=== PATIENT | male | born 1965 | race Caucasian/White ===

== ENCOUNTER → 2017-09-28 | Outpatient (CLI) | payer OTHER | END | disposition home or self-care (01) | LOC: KCIC MRI 14:45 | DX: M51.27 Other intervertebral disc displacement, lumbosacral region (principal); M48.07 Spinal stenosis, lumbosacral region; M12.88 Other specific arthropathies, not elsewhere classified, other specified site; M25.78 Osteophyte, vertebrae; M51.44 Schmorl's nodes, thoracic region | CPT/HCPCS: 72146; 72148 ==

== ENCOUNTER → 2021-02-12 | Outpatient (CLI) | payer BC ==
[~2021-02-12] MED LIST: GADOTERATE 5 MMOL/10ML VIAL. IVP ONE; LISI20TA18 PO; OXYC20TA PO; TAMS0.4C97 PO; TRAM50TA PO
--- NOTE | 2021-02-12 14:08 | KCIC ---
MRI THORACIC SPINE WITHOUT AND WITH IV CONTRAST DATE: 02/12/2021 9:29 AM INDICATION: THORACIC BACK PAIN. Previous surgery C6 only. Chronic middle back pain and loss of sensat ion. 18cc Clariscan. TECHNIQUE: Multi-planar multi-weighted magnetic resonance imaging of the thoracic spine was performed with and without contrast using the standard protocol. 18 cc of Dotarem contrast was administered in travenously. COMPARISON: None. FINDINGS: The thoracic spine is normally aligned. No acute fracture. Vertebral body heights are maintained with out compression deformity. Moderate multilevel degenerative disc desiccation and disc height loss. Mu ltilevel Schmorl's nodes deformities. Degenerative endplate edema at T6-7. The spinal cord is normal in signal intensity. The conus medullaris terminates at a normal level. Multilevel small disc bulges. Mild spinal canal stenosis at T7-8, moderate at T10-11. Moderate left a nd mild right neural foraminal narrowing at T10-11. No soft tissue abnormality within the visualized chest or abdomen. The visualized thoracic aorta is n ormal caliber. IMPRESSION: Moderate thoracic spondylosis, similar to the prior. Electronically signed by: Dillan Sharif MD (02/12/2021 2:06 PM) [id number]
== END ==
LOC: KCIC MRI 09:12
PROVIDERS: ATTEND Family Medicine
DX: M47.814 Spondylosis without myelopathy or radiculopathy, thoracic region (principal); M51.34 Other intervertebral disc degeneration, thoracic region; M51.44 Schmorl's nodes, thoracic region; M51.24 Other intervertebral disc displacement, thoracic region; R60.0 Localized edema; M48.02 Spinal stenosis, cervical region
CPT/HCPCS: 72157; A9575